=== PATIENT | male | born 1955 ===

== ENCOUNTER 2023-12-30 16:26 | Outpatient (REF) | payer MEDICARE, SELFPAY ==
[2023-12-30 21:22] LABS: HCT 43.2 % (40.0-50.0); HGB 14.3 g/dL (13.5-17.5); MCH 30.4 pg (27.0-33.0); MCHC 33.1 % (32.0-36.0); MCV 92 fL (80-95); MPV 9.7 fL (8.0-11.0); Platelet Count 278 10^3/uL (130-400); RDW-SD 44.2 fL
[2023-12-30 21:42] LABS: ALT 16 U/L (16-63); AST 19 U/L (15-37); Albumin 4.2 g/dL (3.4-5.0); Alkaline Phosphatase 75 U/L (46-116); BUN 15 mg/dL (7-18); Bilirubin, Total 0.46 mg/dL (0.2-1.0); CREATININE 1.1 mg/dL (0.70-1.30); Calcium 9.5 mg/dL (8.5-10.1); Calculated LDL 99 mg/dL (<100); Chloride 107 mmol/L (98-107); Cholesterol 168 mg/dL (<200); Estimated GFR 73.12 (mL/min/1.73m2); Glucose 87 mg/dL (74-106); HDL Cholesterol 59 mg/dL (40-60); Potassium 4.6 mmol/L (3.5-5.1); Sodium 143 mmol/L (136-145); TSH (W/Ref FT4) 2.89 uIU/mL (0.36-3.74); Total Protein 7.7 g/dL (6.4-8.2); Triglyceride 52 mg/dL (<150)
[2023-12-31 18:38] LABS: PSA, Screening 0.5 ng/mL (<=4.5)
== END 2023-12-30 16:27 | disposition home or self-care (01) ==
LOC: NCHCN 16:26
PROVIDERS: Visit Provider Family Medicine
DX: Z13.228 Encounter for screening for other metabolic disorders (principal); Z12.5 Encounter for screening for malignant neoplasm of prostate; Z13.29 Encounter for screening for other suspected endocrine disorder; Z13.89 Encounter for screening for other disorder
CPT/HCPCS: 80053; 80061; 84153; 85027; 84443